=== PATIENT | female | born 2005 | race Asian ===

== ENCOUNTER 2024-03-17 19:18 | Emergency (ER) | payer SELFPAY ==
[~2024-03-17] VITALS: Ht 167.6 cm; Wt 57.0 kg
[2024-03-17 19:27] VITALS: BP 114/77; PULSE 83; RESP 14; O2SAT 99
[2024-03-17 20:19] VITALS: TEMP 98.3
[2024-03-17] MEDS: ACETAMINOPHEN 325MG TABLET PO STA (20:19)
[2024-03-17 21:31] LABS: BASOPHILS % 0.3 % (0.0-2.0); EOSINOPHILS % 0.2 % (0.0-5.0); HEMATOCRIT. 38.2 % (36.0-48.0); HEMOGLOBIN. 13.2 g/dL (12.0-16.0); LYMPHOCYTES % 7.3 % (20.0-50.0); MEAN CORPUSCULAR HEMOGLOBIN 30.3 pg (28.0-32.0); MEAN CORPUSCULAR HGB CONC 34.4 g/dL (31.0-37.0); MEAN PLATELET VOLUME 7.4 fl (7.4-10.4); MONOCYTES % 3.4 % (2.0-8.0); NEUTROPHILS % 88.8 % (40.0-76.0); PLATELET 270 x1000/uL (130-400); RED BLOOD CELL COUNT 4.34 mill/uL (4.2-5.4); RED CELL DISTRIBUTION WIDTH 12.6 % (11.6-14.6); WHITE BLOOD COUNT 10.4 x1000/uL (4.5-11.0)
[2024-03-17 21:35] LABS: CARBON DIOXIDE 27 mEq/L (21-32); CHLORIDE 104 mEq/L (98-107); POTASSIUM 3.7 mEq/L (3.5-5.1); SODIUM 137 mEq/L (136-145)
[2024-03-17 21:36] LABS: CALCIUM 9.6 mg/dL (8.7-10.4)
[2024-03-17 21:40] LABS: CREATININE 0.6 mg/dL (0.6-1.0); GLUCOSE 108 mg/dL (70-105)
[2024-03-17 21:41] LABS: UREA NITROGEN BLOOD 8 mg/dL (9-23)
[2024-03-17 21:42] LABS: ALANINE AMINOTRANSFERASE < 7 IU/L (10-49)
[2024-03-17 21:43] LABS: ASPARTATE AMINOTRANSFERASE 14 IU/L (<34); BILIRUBIN TOTAL 0.6 mg/dL (0.1-1.0); PROTEIN TOTAL 7.4 g/dL (6.0-8.3)
[2024-03-17 21:48] LABS: HCG SCREEN NEGATIVE
[2024-03-17 23:36] LABS: CLARITY URINE CLOUDY (CLEAR); COLOR URINE ORANGE (YELLOW); GLUCOSE URINE NEGATIVE (NEGATIVE); KETONES URINE 1+ (NEGATIVE); LEUKOCYTE ESTERASE URINE TRACE (NEGATIVE); NITRITE URINE NEGATIVE (NEGATIVE); OCCULT BLOOD URINE 3+ (NEGATIVE); PROTEIN URINE 2+ (NEGATIVE); SPECIFIC GRAVITY URINE 1.015 (1.005-1.030); UROBILINOGEN URINE 0.2 E.U./dL (0.2-1.0)
[2024-03-17] MEDS ORDERED: CEPH500T MT (23:55)
[2024-03-18 01:09] LABS: SQUAMOUS EPITHELIAL CELL URINE FEW /lpf (RARE/1+)
[2024-03-18 01:10] LABS: RBC URINE TNTC /hpf (0-2); WBC URINE 0-2 /hpf (0-2)
[2024-03-18 01:11] LABS: BACTERIA URINE TRACE
== END 2024-03-18 01:18 | disposition home or self-care (01) ==
LOC: ER 19:18
DX: N39.0 Urinary tract infection, site not specified (principal)
CPT/HCPCS: 36415; 76856; 80053; 81003; 84703; 85025; 99284